=== PATIENT | female | born 1970 | race Caucasian/White ===

== ENCOUNTER 2021-06-27 17:38 | Emergency (ER) | payer OTHER ==
[~2021-06-27] VITALS: Ht 165.1 cm; Wt 72.6 kg
--- NOTE | 2021-06-27 18:15 | NUR ---
PATIENT IN BED C/O L EYEBROW LACERATION S/P LIFTING A PIECE OF WOOD 2 HOURS AGO. PATIENT ALERT AND ORIENTED X4. O RESPIRATORY DISTRESS NOTED, 3/10 PAIN. WILL CONTINUE TO MONITOR
[2021-06-27] MEDS ORDERED: LIDOCAINE 2% 20 ML MDV ONE (18:30)
[2021-06-27] MEDS ORDERED: TDAP [DIPH/PERTUSSIS/TET] 0.5 ML VIAL IM ONE (19:13)
[2021-06-27] MEDS: TDAP [DIPH/PERTUSSIS/TET] 0.5 ML VIAL IM ONE (19:17)
[2021-06-27 19:18] VITALS: BP 165/114
--- NOTE | 2021-06-27 19:18 | NUR ---
Patient discharged to home in stable condition. Written and verbal after care instructions given. Patient verbalizes understanding of instruction.
== END 2021-06-27 19:18 | disposition home or self-care (01) ==
LOC: ER 17:50
DX: S01.112A Laceration without foreign body of left eyelid and periocular area, initial encounter (principal); W22.8XXA Striking against or struck by other objects, initial encounter; Y93.89 Activity, other specified; Y92.89 Other specified places as the place of occurrence of the external cause; Y99.8 Other external cause status
CPT/HCPCS: 12011; 90471; 90715; 99283; J3490